=== PATIENT | female | born 1950 | race Caucasian/White ===

== ENCOUNTER 2016-07-19 22:33 | Emergency (ER) | payer OTHER ==
[~2016-07-19] VITALS: Ht 167.6 cm; Wt 78.0 kg
[2016-07-19] MEDS ORDERED: ACETAMINOPHEN 325 MG TABLET PO ONE (23:00)
--- NOTE | 2016-07-19 23:08 | NUR ---
XRAY AT THE BEDSIDE.
--- NOTE | 2016-07-19 23:18 | NUR ---
XRAY FINISHED AT THE BEDSIDE.
[2016-07-19] MEDS ORDERED: ACETAMINOPHEN ES 500 MG TABLET ONE (23:19)
--- NOTE | 2016-07-19 23:57 | NUR ---
ORTHO GLASS SPLINT APPLIED.
--- NOTE | 2016-07-20 00:03 | NUR ---
PT REC'D A SHOULDER SLING
[2016-07-20 00:16] VITALS: BP 143/97
== END 2016-07-20 00:16 | disposition home or self-care (01) ==
LOC: ER 22:33
DX: S62.317A Displaced fracture of base of fifth metacarpal bone, left hand, initial encounter for closed fracture (principal); F17.200 Nicotine dependence, unspecified, uncomplicated; W19.XXXA Unspecified fall, initial encounter; Y93.01 Activity, walking, marching and hiking; Y92.89 Other specified places as the place of occurrence of the external cause; Y99.9 Unspecified external cause status
CPT/HCPCS: 29125; 73090; 73130; 99284; A4606; Z7610